=== PATIENT | male | born 1975 | race Caucasian/White ===

== ENCOUNTER 2022-01-01 19:30 | Inpatient (IN) ==
[2022-01-01 20:23] LABS: Basophils # 0.1 K/mcL (0.0-0.2); Basophils % 0.9 %; Eosinophils # 0.4 K/mcL (0.0-0.6); Eosinophils % 3.5 %; Hematocrit 45.3 % (37.5-50.1); Hemoglobin 16.1 g/dL (12.9-16.9); Immature Granulocytes % 0.4 % (0-4); Lymphocytes # 4.3 K/mcL (0.6-4.6); Lymphocytes % 35.6 %; Mean Corpuscular HGB Conc 35.5 g/dL (31.6-35.5); Mean Corpuscular Hemoglobin 33.8 pg (28.0-33.3); Mean Platelet Volume 10.4 fL (9.4-12.4); Monocytes # 1.2 K/mcL (0.0-1.3); Monocytes % 9.7 %; Platelet Count 250 K/mcL (140-400); Red Blood Count 4.77 M/mcL (4.19-5.50); Red Cell Distribution Width 11.9 % (11.5-14.5); Segmented Neutrophils % 49.9 %; White Blood Count 12.1 K/mcL (4.3-11.1)
[2022-01-01 20:35] LABS: Acetaminophen < 10 mcg/mL (10-20); BUN/Creatinine Ratio 15 (6-26); Blood Urea Nitrogen 12 mg/dL (6-20); Calcium 9.6 mg/dL (8.6-10.3); Carbon Dioxide 25 mEq/L (23-29); Chloride 101 mEq/L (98-107); Ethanol 54 mg/dL (Less than 10); Glucose 99 mg/dL (70-105); Osmolality,Calculated 280 (280-300); Potassium 3.7 mEq/L (3.5-5.1); Salicylate < 2.5 mg/dL (15.0-30.0); Sodium 135 mEq/L (136-145); eGFR For African Americans > 60 (> 60); eGFR For Non-African Americans > 60 (> 60)
[2022-01-01 20:53] LABS: Influenza A PCR Negative (Negative); Influenza B PCR Negative (Negative); Resp. Syncytial Virus PCR Negative (Negative); SARS-CoV-2 by PCR (In House) Negative (Negative)
[2022-01-01 20:53] LABS: Bilirubin,Urine Negative (Negative); Blood,Urine Negative (Negative); Clarity,Urine Clear (Clear); Color,Urine Light-Yellow (Yellow); Glucose,Urine (UA) 200 mg/dL (Normal); Hyaline Casts,Urine Few per lpf (None Seen); Ketones,Urine Trace mg/dL (Negative); Leukocyte Esterase,Urine Negative (Negative); Mucus,Urine Few per lpf (None-Few); Nitrite,Urine Negative (Negative); Protein,Urine Negative (Neg-Trace); RBC,Urine 0-3 per hpf (0-3); Specific Gravity,Urine 1.017 (1.010-1.025); Squamous Epithelial Cell,Urine Few per hpf (None-Few); Urobilinogen,Urine Normal (Normal)
[2022-01-01 20:57] LABS: Amphetamine Screen,Urine Negative ng/mL (Cutoff=1000); Barbiturate Screen,Urine Negative ng/mL (Cutoff=200); Benzodiazepines Screen,Urine Negative ng/mL (Cutoff=200); Cannabinoid Screen,Urine Positive ng/mL (Cutoff = 50); Cocaine Screen,Urine Negative ng/mL (Cutoff= 300); Opiate Screen,Urine Negative ng/mL (Cutoff=300); Phencyclidine Screen,Urine Negative ng/mL (Cutoff=25)
[2022-01-02] MEDS ORDERED: *HR* LORazepam 2 MG/ML VIAL IM PRN (02:05)
[2022-01-02] MEDS ORDERED: Haloperidol Lactate 5 MG/ML VIAL IM PRN (02:05)
[2022-01-02] MEDS ORDERED: Mag Hydrox/Al Hydrox/Simeth 30 ML UDC PO PRN (02:05)
[2022-01-02] MEDS ORDERED: Acetaminophen 325 MG TABLET PO PRN (02:05)
[2022-01-02] MEDS ORDERED: MOM Conc 10 ML UD.LIQ PO PRN (02:05)
[2022-01-02] MEDS ORDERED: *HR* LORazepam 1 MG TABLET PO PRN (02:05)
[2022-01-02] MEDS ORDERED: haloperidoL 5 MG TABLET PO PRN (02:05)
[2022-01-02] MEDS ORDERED: Ibuprofen 400 MG TABLET PO PRN (02:05)
[2022-01-02] MEDS: Nicotine 21 MG PATCH.TD24 TD SCH (11:22)
[2022-01-02] MEDS: lamoTRIgine 25 MG TABLET PO SCH (20:20)
[2022-01-02] MEDS: traZODone 50 MG TABLET PO PRN (20:20)
[2022-01-02] MEDS: hydrOXYzine pamoate 25 MG CAPSULE PO PRN (20:21)
[2022-01-03] MEDS: Nicotine 21 MG PATCH.TD24 TD SCH (08:47)
[2022-01-03] MEDS: hydrOXYzine pamoate 25 MG CAPSULE PO PRN (21:10)
[2022-01-03] MEDS: lamoTRIgine 25 MG TABLET PO SCH (21:10)
[2022-01-03] MEDS: traZODone 50 MG TABLET PO PRN (21:10)
[2022-01-04] MEDS: Nicotine 21 MG PATCH.TD24 TD SCH (08:29)
[2022-01-04 08:58] VITALS: O2SAT 97
[2022-01-04 12:41] LABS: Bacteria,Urine Few per hpf (None-Few); Bilirubin,Urine Negative (Negative); Blood,Urine Negative (Negative); Clarity,Urine Clear (Clear); Color,Urine Light-Yellow (Yellow); Glucose,Urine (UA) 30 mg/dL (Normal); Ketones,Urine Negative (Negative); Leukocyte Esterase,Urine Negative (Negative); Mucus,Urine Few per lpf (None-Few); Nitrite,Urine Negative (Negative); Protein,Urine Negative (Neg-Trace); RBC,Urine 0-3 per hpf (0-3); Specific Gravity,Urine 1.021 (1.010-1.025); Squamous Epithelial Cell,Urine Few per hpf (None-Few); Urobilinogen,Urine Normal (Normal); WBC,Urine 0-3 per hpf (0-3)
[2022-01-04 14:31] LABS: Chol/HDL Ratio 4.1 (0-4.9)
[2022-01-04 14:48] LABS: Estimated Average Glucose 105 mg/dl; Hemoglobin A1C 5.3 %; Thyroid Stimulating Hormone 1.548 mcIU/mL (0.340-5.600)
[2022-01-04] MEDS: traZODone 50 MG TABLET PO PRN (20:52)
[2022-01-04] MEDS: hydrOXYzine pamoate 25 MG CAPSULE PO PRN (20:52)
[2022-01-04] MEDS ORDERED: lamoTRIgine 25 MG TABLET PO SCH (21:00)
[2022-01-05] MEDS: Nicotine 21 MG PATCH.TD24 TD SCH (08:08)
[2022-01-05 10:12] VITALS: BP 138/90; PULSE 93; TEMP 98.2
== END 2022-01-05 16:30 | disposition home or self-care (01) | DRG 885 ==
LOC: EMEROOARM 19:30 → 1ANU 01-02 01:04
PROVIDERS: ADMIT Psychiatry & Neurology Psychiatry; ATTEND Psychiatry & Neurology Psychiatry